=== PATIENT | female | born 1970 | race Caucasian/White ===

== ENCOUNTER 2017-09-23 09:24 | Day surgery (SDC) | payer OTHER ==
[~2017-09-23] VITALS: Ht 144.8 cm; Wt 62.5 kg
[2017-09-23 10:15] VITALS: Ht 144.8 cm; Wt 62.5 kg
[2017-09-23 10:37] VITALS: BP 110/71; PULSE 71; RESP 25
--- NOTE | 2017-09-23 11:09 | OPPN ---
Date/Time of Note Date/Time of Note DATE: 09/23/17 TIME: 10:31 Operative Report Preoperative Diagnosis Change in bowel habit Postoperative Diagnosis Sigmoid polyp was removed Internal hemorrhoids Operation/Procedure Performed Colonoscopy and polypectomy Clipping of the polypectomy site Surgeon see signature line physiotherapy assistant None Anesthesia: moderate sedation Estimated blood loss: none Transfusion Required none Specimen None Grafts/Implants none Complications none ROSENDA STARKS MD Sep 23, 2017 11:09
--- NOTE | 2017-09-23 11:09 | OPPN ---
Date/Time of Note Date/Time of Note DATE: 09/23/17 TIME: 10:31 Operative Report Preoperative Diagnosis Change in bowel habit Postoperative Diagnosis Sigmoid polyp was removed Internal hemorrhoids Operation/Procedure Performed Colonoscopy and polypectomy Clipping of the polypectomy site Surgeon see signature line inside sales assistant None Anesthesia: moderate sedation Estimated blood loss: none Transfusion Required none Specimen None Grafts/Implants none Complications none ROSENDA STARKS MD Sep 23, 2017 11:09
--- NOTE | 2017-09-23 11:09 | OPPN ---
Date/Time of Note Date/Time of Note DATE: 09/23/17 TIME: 10:31 Operative Report Preoperative Diagnosis Change in bowel habit Postoperative Diagnosis Sigmoid polyp was removed Internal hemorrhoids Operation/Procedure Performed Colonoscopy and polypectomy Clipping of the polypectomy site Surgeon see signature line tiler's assistant None Anesthesia: moderate sedation Estimated blood loss: none Transfusion Required none Specimen None Grafts/Implants none Complications none ROSENDA STARKS MD Sep 23, 2017 11:09
[2017-09-23] MEDS ORDERED: FENTAnyl 50 MCG/ML VIAL ONE (11:32)
[2017-09-23] MEDS ORDERED: MIDAZOLAM 1 MG/ML 2 ML INJ ONE ×2 (11:32)
[2017-09-23 11:34] VITALS: BP 109/68; RESP 17
--- NOTE | 2017-09-24 03:02 | GILP ---
DATE OF PROCEDURE: NAME OF PROCEDURES: 1. Colonoscopy and polypectomy. 2. Clipping of the polypectomy site. SURGEON: Rosenda Ceja MD PREOPERATIVE DIAGNOSIS: Change in bowel habit. POSTOPERATIVE DIAGNOSES: 1. Colonoscopy all the way to the cecum. 2. Small sigmoid colon polyp was removed using the snare and electrocautery. 3. Clipping of the polypectomy site was done to stop bleeding. 4. Internal hemorrhoids. INDICATION FOR THE PROCEDURE: Ms. Carrie Ashby is a 47-year-old female patient who was scheduled for screening colonoscopy because the patient was complaining of change in the bowel habit. The procedure and possible complications are well explained to the patient. She understood and cons ented to the procedure. DESCRIPTION OF PROCEDURE: Under the influence of fentanyl and Versed, the colonoscope was carefully introduced in the rectum and under direct vision, it was advanced all the way to the cecum. FINDINGS: The patient had a sigmoid colon polyp and it was removed using the snare and electrocaute ry. There was slight amount of bleeding off the polypectomy and it was stopped with clipping of the polypectomy site. The patient was noted to have internal hemorrhoids. She tolerated the procedure very well and there was no complication from the procedure. At the end of the procedures, she was awake with stable vital signs and she was discharged home to the care of her family. The polyp could not be retrieved. IMPRESSION: Please see postoperative diagnoses. PLAN: Next screening colonoscopy in 5 years. Dictated By: ROSENDA YOUNG/ROSIE Conf#: [id number] DID#: [id number]
== END 2017-09-23 11:52 | disposition home or self-care (01) ==
LOC: GIL 09:24
PROVIDERS: ATTEND Internal Medicine Gastroenterology
DX: R19.4 Change in bowel habit (principal); K64.8 Other hemorrhoids; D12.5 Benign neoplasm of sigmoid colon
CPT/HCPCS: 45385; 84703; J2250; J3010; Z7610